=== PATIENT | female | born 1945 | race Caucasian/White ===

== ENCOUNTER 2017-12-16 10:34 | Day surgery (SDC) | payer MEDICARE, BC ==
[2017-12-16] MEDS ORDERED: PROPOFOL 10 MG/ML VIAL IV ONE (10:35)
[2017-12-16] MEDS ORDERED: LIDOCAINE 2% MDV (20MG/ML) 20ML VIAL IV ONE (10:35)
--- NOTE | 2017-12-17 09:30 | Operative Note ---
DATE OF SURGERY: 12/16/2017 OPERATION: COLONOSCOPY with cold forceps polypectomy. PREOPERATIVE DIAGNOSIS: Personal history of colon polyps. POSTOPERATIVE DIAGNOSIS: Colon polyps. PROCEDURE: After informed consent was obtained from the patient, she was placed in the left lateral decubitus position in the endoscopy suite, sedated and monitored by the department of anesthesia. Digital rectal exam was unremarkable. A well-lubricated [id number] colonoscope was inserted into the rectum and advanced to the cecum. Preparation quality was fair to good. The cecum and ascending colon were unremarkable. The ileocecal valve and appendiceal orifice were unremarkable. In the distal transverse colon, there was a 4 mm polyp removed in piecemeal fashion with a cold forceps. There was a proximal descending colon polyp which was approximately 4 mm in diameter removed with a cold forceps. The remainder of the transverse colon, descending colon, sigmoid colon, and rectum were otherwise unremarkable. J-turn views of the anorectum were unrevealing. The endoscope was straightened, the rectal ampulla deflated, and the endoscope was removed. RECOMMENDATIONS: I would suggest the patient resume her medications and diet. She will require repeat exam in 5 years. As always, thank you for allowing me to participate in the healthcare of your patients. CC: Dr. Perla KELLEY
== END 2017-12-16 11:59 | disposition home or self-care (01) ==
LOC: HOP 10:34
PROVIDERS: ATTEND Internal Medicine Gastroenterology
DX: Z86.010 Personal history of colon polyps (principal); D12.3 Benign neoplasm of transverse colon; D12.4 Benign neoplasm of descending colon; I10 Essential (primary) hypertension